=== PATIENT | male | born 1990 ===

== ENCOUNTER 2021-09-13 14:07 | Outpatient (CLI) | payer OTHER | END 2021-09-13 14:15 | disposition home or self-care (01) | LOC: RAD 14:07 | DX: M99.01 Segmental and somatic dysfunction of cervical region (principal); M99.02 Segmental and somatic dysfunction of thoracic region; M99.03 Segmental and somatic dysfunction of lumbar region; M99.04 Segmental and somatic dysfunction of sacral region; M99.05 Segmental and somatic dysfunction of pelvic region ==